=== PATIENT | male | born 1975 | race Caucasian/White ===

== ENCOUNTER 2023-12-01 03:44 | Emergency (ER) | payer MEDICAID ==
[~2023-12-01] VITALS: Ht 180.3 cm; Wt 78.0 kg
[2023-12-01 03:51] VITALS: O2SAT 97
[2023-12-01] MEDS ORDERED: ONDANSETRON 4MG ODT PO ONE (04:15)
[2023-12-01] MEDS ORDERED: ACETAMINOPHEN 325MG TABLET PO ONE (04:15)
[2023-12-01] MEDS ORDERED: MORPHINE SULFATE 10 MG/ML CPJ IM ONE (04:15)
[2023-12-01] MEDS ORDERED: MORPHINE SULFATE 10 MG/ML CPJ IM NR (05:45)
[2023-12-01 06:53] LABS: BASOPHILS % 0.8 % (0.0-2.0); EOSINOPHILS % 3.2 % (0.0-5.0); HEMATOCRIT. 39.7 % (42.0-52.0); HEMOGLOBIN. 13.6 g/dL (14.0-18.0); LYMPHOCYTES % 26.7 % (20.0-50.0); MEAN CORPUSCULAR HEMOGLOBIN 30.5 pg (28.0-32.0); MEAN CORPUSCULAR HGB CONC 34.1 g/dL (31.0-37.0); MEAN CORPUSCULAR VOLUME 89.3 fL (80.0-94.0); MEAN PLATELET VOLUME 7.4 fl (7.4-10.4); MONOCYTES % 10.4 % (2.0-8.0); NEUTROPHILS % 58.9 % (40.0-76.0); PLATELET 308 x1000/uL (130-400); RED BLOOD CELL COUNT 4.45 mill/uL (4.7-6.1); WHITE BLOOD COUNT 7.8 x1000/uL (4.5-11.0)
[2023-12-01 07:01] LABS: PROTHROMBIN TIME 10.9 sec (9.6-11.0)
[2023-12-01 07:04] LABS: ALANINE AMINOTRANSFERASE 10 IU/L (10-49); ALBUMIN 4.6 g/dL (3.2-4.8); ASPARTATE AMINOTRANSFERASE 21 IU/L (<34); BILIRUBIN TOTAL 0.7 mg/dL (0.1-1.0); CALCIUM 9.4 mg/dL (8.7-10.4); CARBON DIOXIDE 22 mEq/L (21-32); CHLORIDE 105 mEq/L (98-107); CREATININE 1.1 mg/dL (0.6-1.3); GLUCOSE 104 mg/dL (70-105); POTASSIUM 3.7 mEq/L (3.5-5.1); PROTEIN TOTAL 7.8 g/dL (6.0-8.3); SODIUM 139 mEq/L (136-145); UREA NITROGEN BLOOD 14 mg/dL (9-23)
[2023-12-01] MEDS ORDERED: IOHEXOL-300 100 ML BOTTLE ONE (13:59)
[2023-12-01 16:15] VITALS: BP 132/72; PULSE 67; RESP 18; TEMP 98
== END 2023-12-01 16:31 | disposition home or self-care (01) ==
LOC: ER 03:44
DX: S20.221A Contusion of right back wall of thorax, initial encounter (principal); S09.90XA Unspecified injury of head, initial encounter; W18.39XA Other fall on same level, initial encounter; Y93.89 Activity, other specified; Y92.89 Other specified places as the place of occurrence of the external cause; Y99.8 Other external cause status
CPT/HCPCS: 99291; 70450; 80053; 85025; 85610; 36415; 71260; 72125; 72131; 74177; 96372; 74176; Q9967; Q0162; J2270